=== PATIENT | male | born 1985 | race African-American/Black ===

== ENCOUNTER 2017-08-09 08:49 | Emergency (ER) | payer MEDICAID ==
[~2017-08-09] VITALS: Ht 182.9 cm; Wt 93.2 kg
[2017-08-09 09:49] VITALS: BP 135/65
== END 2017-08-09 09:57 | disposition home or self-care (01) ==
LOC: EMS 08:50
DX: L25.9 Unspecified contact dermatitis, unspecified cause (principal); F12.90 Cannabis use, unspecified, uncomplicated
CPT/HCPCS: 99283